=== PATIENT | female | born 1960 | race Caucasian/White ===

== ENCOUNTER 2021-10-20 10:08 | Emergency (ER) | payer OTHER ==
[~2021-10-20] VITALS: Ht 157.5 cm; Wt 54.4 kg
[2021-10-20 10:15] VITALS: BP 147/81
--- NOTE | 2021-10-20 10:35 | NUR ---
61/F BIBA FROM HOME. PER EMS PATIENTS DAUGHTER CALLED 911 STATING PATIENT C/O LLQ PAIN, N/V X1 HOUR PRIOR TO ARRIVAL TO ED. 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
--- NOTE | 2021-10-20 10:55 | NUR ---
Patient discharged with v/s stable. Written and verbal after care instructions FOR ABDOMINAL PAIN AND CONSTIPATION given and explained. Patient verbalized understanding. Ambulatory with steady gait. All questions addressed prior to discharge. Advised to follow up with PMD.
== END 2021-10-20 10:55 | disposition home or self-care (01) ==
LOC: MED 10:08
DX: R10.32 Left lower quadrant pain (principal); I10 Essential (primary) hypertension; N18.6 End stage renal disease; K59.09 Other constipation; Z99.2 Dependence on renal dialysis; Z90.49 Acquired absence of other specified parts of digestive tract; Z98.890 Other specified postprocedural states
CPT/HCPCS: 99283